=== PATIENT | male | born 1960 | race Hispanic/Latino ===

== ENCOUNTER 2024-03-23 10:07 | Inpatient (IN) | payer BC ==
[2024-03-23] VITALS (18 sets, daily range): BP systolic 136–151; BP diastolic 60–79; PULSE 81–101; RESP 17–26; TEMP 97.6–99.9; O2SAT 96–98
[~2024-03-23] VITALS: Ht 180.3 cm; Wt 84.8 kg
[2024-03-23] MEDS: 0.9%NACL 1000ML 1,000 ML IV ONE (10:37)
[2024-03-23] MEDS: ondanSETRON 4MG INJ IVP ONE (10:37)
[2024-03-23] MEDS: morPHINE 2 MG SYG IVP ONE (10:39)
[2024-03-23 10:40] LABS: BASOPHILS # (AUTO) 0.13 K/uL (0.00-0.20); BASOPHILS % (AUTO) 0.5 % (0.0-5.0); HEMATOCRIT 45.2 % (42-54); LYMPHOCYTES # (AUTO) 0.6 K/uL (1.0-4.8); MEAN CORPUSCULAR HEMOGLOBIN 34.4 pg (27.0-33.0); MEAN CORPUSCULAR HGB CONC 35.4 g/dL (32.0-36.0); MEAN CORPUSCULAR VOLUME 97.2 fL (79-99); MONOCYTES # (AUTO) 1.5 K/uL (0.1-1.0); MONOCYTES % (AUTO) 5.2 % (3.0-13.0); NEUTROPHILS # (AUTO) 26.2 K/uL (1.8-7.7); NEUTROPHILS % (AUTO) 91.3 % (40.0-77.0); PLATELET COUNT (AUTO) 238 K/uL (130-400); RED BLOOD CELL COUNT(AUTO) 4.65 MIL/uL (4.50-6.20); RED CELL DISTRIBUTION WIDTH 11.9 % (11.0-15.5); WHITE BLOOD COUNT (AUTO) 28.7 K/uL (4.8-10.8)
[2024-03-23 10:48] LABS: CREATININE 0.7 mg/dL (0.5-1.3); POTASSIUM 3.2 mmol/L (3.5-5.1)
[2024-03-23] MEDS: ZOSYN 3.375GM +NS 50ML IVPB STA (11:14)
[2024-03-23] MEDS ORDERED: IOHEXOL-350 75 ML VIAL IV ONE (11:46)
[2024-03-23] MEDS: PoTASSium BIcarbonate/CIT AC 25 MEQ TABLET.EFF PO ONE (13:31)
[2024-03-23] MEDS: [UNRECOGNIZED DRUG - OTHER] IV ONE (13:36)
[2024-03-23] MEDS: morPHINE 4 MG SYG IVP ONE (13:39)
[2024-03-23] MEDS ORDERED: HEParin 5,000 UNIT VIAL SQ SCH (14:30)
[2024-03-23] MEDS ORDERED: morPHINE 2 MG SYG IVP PRN (14:30)
[2024-03-23] MEDS: hydroMORPHone 0.5 MG SYG (0.5MG/0.5ML) IVP PRN (14:36)
[2024-03-23] MEDS: DEXTROSE 5 %-0.45 % NACL 1,000 ML IV SCH (15:49)
[2024-03-23 16:29] LABS: INR 1.21 (0.85-1.15); PROTHROMBIN TIME 12.9 SEC (9.6-11.6)
[2024-03-23 16:31] LABS: PARTIAL THROMBOPLASTIN TIME 30.8 SEC (26.3-35.5)
[2024-03-23] MEDS ORDERED: 0.9%NACL 50ML IV SCH (19:00)
[2024-03-23] MEDS ORDERED: dexaMETHasone SOD PHOSPHATE 10MG/ML 1ML VIAL ONE (20:23)
[2024-03-23] MEDS ORDERED: LIDOCAINE PF 100MG/5ML (2%) SYRINGE 5ML ONE (20:23)
[2024-03-23] MEDS ORDERED: MIDAZOLAM HCL 1 MG/ML 2ML VIAL ONE (20:24)
[2024-03-23] MEDS ORDERED: GLYCOPYRROLATE 0.2 MG/ML 5 ML VIAL ONE (20:24)
[2024-03-23] MEDS ORDERED: SUCCINYLCHOLINE CHLORIDE 20 MG/ML 10 ML VIAL ONE (20:24)
[2024-03-23] MEDS ORDERED: NEOSTIGMINE METHYLSULFATE 1MG/ML IV ONE (20:24)
[2024-03-23] MEDS ORDERED: proPOFol 10 MG/ML 20ML VIAL IV ONE (20:24)
[2024-03-23] MEDS ORDERED: ondanSETRON 4MG INJ ONE (20:24)
[2024-03-23] MEDS ORDERED: rocuRONium bROMide 10MG/1ML 5ML VL ONE (20:24)
[2024-03-23] MEDS ORDERED: FENTanyl CITRate PF 50 MCG/1 ML 2ML VIAL ONE ×3 (20:25→21:42)
[2024-03-23] MEDS ORDERED: ketaMINE 50MG/ML SYRINGE 50 MG/ML DISP.SYRIN ONE (20:35)
[2024-03-23] MEDS ORDERED: ALBUMIN (HUMAN) 5% 250 ML IV ONE (20:36)
[2024-03-23] MEDS ORDERED: BUPIvacaine/PF 0.5% 30ML VIAL ONE (20:45)
[2024-03-23] MEDS: HEParin 5,000 UNIT VIAL SQ SCH (21:00)
[2024-03-23] MEDS: BUPIvacaine/PF 0.5% 30ML VIAL INJ ONE (21:10)
[2024-03-23] MEDS ORDERED: OXYmetazolone HCL SPRAY 15 ML BOTTLE ONE (21:26)
[2024-03-23] MEDS: SUGAMMADEX SODIUM 200 MG/2 ML VIAL IV ONE (21:45)
[2024-03-23] MEDS: ZOSYN 3.375GM +NS 50ML IVPB SCH (22:15)
[2024-03-23] MEDS: ZOSYN 3.375GM+NS 50ML 50 ML ONE (23:51)
[2024-03-24] VITALS (15 sets, daily range): BP systolic 126–156; BP diastolic 69–84; PULSE 69–87; RESP 18–20; TEMP 98–98.7; O2SAT 98–100
[2024-03-24] MEDS: ketOROlac 15MG/ML VIAL (15MG/ML) IV PRN (03:09)
[2024-03-24 03:44] LABS: BASOPHILS # (AUTO) 0.03 K/uL (0.00-0.20); BASOPHILS % (AUTO) 0.2 % (0.0-5.0); HEMATOCRIT 40.1 % (42-54); IMMATURE GRANULOCYTE ABSOLUTE 0.07 K/uL (0-1); LYMPHOCYTES # (AUTO) 0.5 K/uL (1.0-4.8); MEAN CORPUSCULAR HEMOGLOBIN 34.7 pg (27.0-33.0); MEAN CORPUSCULAR HGB CONC 34.4 g/dL (32.0-36.0); MEAN CORPUSCULAR VOLUME 100.8 fL (79-99); MONOCYTES # (AUTO) 0.8 K/uL (0.1-1.0); MONOCYTES % (AUTO) 4.3 % (3.0-13.0); NEUTROPHILS % (AUTO) 92.1 % (40.0-77.0); PLATELET COUNT (AUTO) 215 K/uL (130-400); RED BLOOD CELL COUNT(AUTO) 3.98 MIL/uL (4.50-6.20); WHITE BLOOD COUNT (AUTO) 17.4 K/uL (4.8-10.8)
[2024-03-24 04:08] LABS: ALBUMIN 2.3 g/dL (3.5-5.0); BILIRUBIN,TOTAL 1.2 mg/dL (0.2-1.0); CREATININE 0.9 mg/dL (0.5-1.3); POTASSIUM 3.7 mmol/L (3.5-5.1); TOTAL PROTEIN, SERUM 6.3 g/dL (6.0-8.3)
[2024-03-24] MEDS: ZOSYN 3.375GM +NS 50ML IVPB SCH (06:14)
[2024-03-24] MEDS ORDERED: LORazepam 2 MG/ML 1 ML VIAL IVP PRN (17:30)
[2024-03-24] MEDS ORDERED: PHARMACY COMMUNICATION MISC PRN (17:30)
[2024-03-24] MEDS: chlordiazePOXIDE HCL 25 MG CAP PO PRN (20:34)
[2024-03-24] MEDS: NICOTINE 21 MG/ 24 HR PATCH TD SCH (20:34)
[2024-03-25 04:09] VITALS: BP 149/80; PULSE 82; RESP 18; TEMP 98.2
[2024-03-25 08:00] VITALS: BP 149/77; PULSE 81; RESP 17; TEMP 97.7; O2SAT 97
[2024-03-25 12:00] VITALS: BP 169/91; PULSE 75; RESP 21; TEMP 98.1
[2024-03-25 16:00] VITALS: BP 167/88; PULSE 83; RESP 20; TEMP 98.2
[2024-03-25 19:25] VITALS: O2SAT 99
[2024-03-25 20:00] VITALS: BP 153/85; PULSE 81; RESP 20; TEMP 99.2
[2024-03-25] MEDS: morPHINE 4 MG SYG IVP PRN (22:29)
[2024-03-26] VITALS: BP 148/85; PULSE 88; RESP 20; TEMP 99.1
[2024-03-26 04:00] VITALS: BP 156/88; PULSE 81; RESP 20; TEMP 99.6
[2024-03-26 08:00] VITALS: BP 150/87; PULSE 74; RESP 19; TEMP 98.3; O2SAT 100
[2024-03-26 12:00] VITALS: BP 171/91; PULSE 81; RESP 18; TEMP 98.1
[2024-03-26 16:00] VITALS: BP 165/91; PULSE 85; RESP 18; TEMP 97.9
[2024-03-26 20:00] VITALS: BP 159/83; PULSE 94; RESP 20; TEMP 97.9; O2SAT 98
[2024-03-27] VITALS (8 sets, daily range): BP systolic 147–164; BP diastolic 82–95; PULSE 78–92; RESP 18–20; TEMP 97.9–99.6; O2SAT 97–98
[2024-03-27 04:02] LABS: BASOPHILS # (AUTO) 0.04 K/uL (0.00-0.20); BASOPHILS % (AUTO) 0.3 % (0.0-5.0); EOSINOPHILS # (AUTO) 0.05 K/uL (0.00-0.70); EOSINOPHILS % (AUTO) 0.4 % (0.0-8.0); HEMATOCRIT 37.9 % (42-54); IMMATURE GRANULOCYTE ABSOLUTE 0.12 K/uL (0-1); LYMPHOCYTES # (AUTO) 1.2 K/uL (1.0-4.8); LYMPHOCYTES % (AUTO) 9.8 % (21.0-51.0); MEAN CORPUSCULAR HEMOGLOBIN 34.7 pg (27.0-33.0); MEAN CORPUSCULAR HGB CONC 35.6 g/dL (32.0-36.0); MEAN CORPUSCULAR VOLUME 97.4 fL (79-99); MONOCYTES % (AUTO) 8.5 % (3.0-13.0); NEUTROPHILS # (AUTO) 9.6 K/uL (1.8-7.7); PLATELET COUNT (AUTO) 174 K/uL (130-400); RED BLOOD CELL COUNT(AUTO) 3.89 MIL/uL (4.50-6.20); RED CELL DISTRIBUTION WIDTH 11.9 % (11.0-15.5); WHITE BLOOD COUNT (AUTO) 12.1 K/uL (4.8-10.8)
[2024-03-27 04:16] LABS: ALBUMIN 1.7 g/dL (3.5-5.0); BILIRUBIN,TOTAL 1.2 mg/dL (0.2-1.0); CREATININE 0.7 mg/dL (0.5-1.3); TOTAL PROTEIN, SERUM 5.9 g/dL (6.0-8.3)
[2024-03-27 04:22] LABS: POTASSIUM 2.4 mmol/L (3.5-5.1)
[2024-03-27] MEDS ORDERED: PoTASSium chl 10% ELIXIR 20MEQ 20 MEQ/15 ML UDCUP PO PRN (04:30)
[2024-03-27] MEDS: PoTASSium chloRIDE 20MEQ ER 20 MEQ ERTAB PO PRN (04:32)
[2024-03-27] MEDS: PoTASSium chloRIDE 20MEQ ER 20 MEQ ERTAB PO ONE (04:39)
[2024-03-27] MEDS: MAGNESIUM 2GM PREMIX 50ML 50 ML IV PRN (04:39)
[2024-03-27] MEDS: ondanSETRON 4MG INJ IVP PRN (19:46)
[2024-03-28] VITALS (8 sets, daily range): BP systolic 142–168; BP diastolic 74–86; PULSE 80–86; RESP 18–20; TEMP 98.2–100.8; O2SAT 96–97
[2024-03-28] MEDS ORDERED: IOHEXOL 350 MG/ML 100ML INFUS..BTL IV ONE (11:19)
[2024-03-28] MEDS: SIMETHICONE 80 MG TAB.CHEW PO ONE (12:15)
[2024-03-28] MEDS: acetaMINOPHEN WITH coDEINE 1 TAB TAB PO PRN (12:15)
[2024-03-28 15:45] LABS: INR 1.18 (0.85-1.15); PROTHROMBIN TIME 12.6 SEC (9.6-11.6)
[2024-03-28 15:46] LABS: PARTIAL THROMBOPLASTIN TIME 28.2 SEC (26.3-35.5)
[2024-03-28] MEDS: fluCONazole 200 MG/NS 100 ML 100 ML IV SCH (15:50)
[2024-03-29] VITALS (9 sets, daily range): BP systolic 116–159; BP diastolic 68–92; PULSE 74–87; RESP 18–21; TEMP 98.3–100.4; O2SAT 97–98
[2024-03-29] MEDS ORDERED: DIATR MEGLU/DIATRIZOATE SODIUM 30 ML BOTTLE ONE (11:03)
[2024-03-29] MEDS: ketOROlac 30MG VIAL (30MG/ML) IVP PRN (17:05)
[2024-03-30 04:29] VITALS: BP 119/69; PULSE 70; RESP 17; TEMP 99.6
[2024-03-30 06:11] LABS: BASOPHILS # (AUTO) 0.07 K/uL (0.00-0.20); BASOPHILS % (AUTO) 0.4 % (0.0-5.0); EOSINOPHILS # (AUTO) 0.06 K/uL (0.00-0.70); EOSINOPHILS % (AUTO) 0.3 % (0.0-8.0); HEMATOCRIT 34.9 % (42-54); IMMATURE GRANULOCYTE ABSOLUTE 0.24 K/uL (0-1); LYMPHOCYTES # (AUTO) 1.4 K/uL (1.0-4.8); LYMPHOCYTES % (AUTO) 7.3 % (21.0-51.0); MEAN CORPUSCULAR HGB CONC 34.1 g/dL (32.0-36.0); MEAN CORPUSCULAR VOLUME 99.7 fL (79-99); MONOCYTES # (AUTO) 1.4 K/uL (0.1-1.0); MONOCYTES % (AUTO) 7.3 % (3.0-13.0); NEUTROPHILS # (AUTO) 15.8 K/uL (1.8-7.7); NEUTROPHILS % (AUTO) 83.4 % (40.0-77.0); PLATELET COUNT (AUTO) 293 K/uL (130-400); RED CELL DISTRIBUTION WIDTH 12.1 % (11.0-15.5)
[2024-03-30 06:17] LABS: ALBUMIN 1.6 g/dL (3.5-5.0); BILIRUBIN,TOTAL 0.8 mg/dL (0.2-1.0); CREATININE 0.9 mg/dL (0.5-1.3); MAGNESIUM 1.9 mg/dL (1.80-2.40); POTASSIUM 3.8 mmol/L (3.5-5.1); TOTAL PROTEIN, SERUM 6.1 g/dL (6.0-8.3)
[2024-03-30 08:11] VITALS: BP 141/71; PULSE 78; RESP 19; TEMP 99.4
[2024-03-30 08:30] VITALS: O2SAT 98
[2024-03-30 20:00] VITALS: BP 148/74; PULSE 82; RESP 20; TEMP 99.4
[2024-03-31] VITALS: BP 144/73; PULSE 78; RESP 20; TEMP 99.2
[2024-03-31 04:00] VITALS: BP 141/73; PULSE 88; RESP 20; TEMP 98.3
[2024-03-31 08:00] VITALS: BP 147/72; PULSE 80; RESP 19; TEMP 97.9; O2SAT 98
[2024-03-31 08:15] VITALS: O2SAT 99
[2024-03-31 16:00] VITALS: BP 151/82; PULSE 81; RESP 19; TEMP 99.4
[2024-03-31 20:00] VITALS: BP 142/75; PULSE 79; RESP 20; TEMP 98.8; O2SAT 96
[2024-04-01] VITALS (8 sets, daily range): BP systolic 134–165; BP diastolic 65–88; PULSE 69–87; RESP 16–20; TEMP 98.2–99.8; O2SAT 98
[2024-04-01] MEDS: DiphenhydrAMINE HCL 25 MG CAPSULE ONE (02:26)
[2024-04-01] MEDS: DiphenhydrAMINE HCL 25 MG CAPSULE PO PRN (02:27)
[2024-04-01] MEDS: ZOSYN 3.375GM +NS 50ML IVPB SCH (23:25)
[2024-04-02] MEDS: CALCIUM CARB 500MG CHEW TAB PO ONE (01:20)
[2024-04-02 03:48] VITALS: BP 132/66; PULSE 93; RESP 18; TEMP 98.3
[2024-04-02 04:54] LABS: BASOPHILS # (AUTO) 0.09 K/uL (0.00-0.20); BASOPHILS % (AUTO) 0.5 % (0.0-5.0); EOSINOPHILS # (AUTO) 0.01 K/uL (0.00-0.70); EOSINOPHILS % (AUTO) 0.1 % (0.0-8.0); HEMATOCRIT 36.3 % (42-54); IMMATURE GRANULOCYTE ABSOLUTE 0.18 K/uL (0-1); LYMPHOCYTES # (AUTO) 1.1 K/uL (1.0-4.8); LYMPHOCYTES % (AUTO) 6.7 % (21.0-51.0); MEAN CORPUSCULAR HEMOGLOBIN 34.2 pg (27.0-33.0); MEAN CORPUSCULAR HGB CONC 33.9 g/dL (32.0-36.0); MEAN CORPUSCULAR VOLUME 100.8 fL (79-99); MONOCYTES # (AUTO) 1.5 K/uL (0.1-1.0); NEUTROPHILS # (AUTO) 13.9 K/uL (1.8-7.7); NEUTROPHILS % (AUTO) 82.6 % (40.0-77.0); PLATELET COUNT (AUTO) 379 K/uL (130-400); RED CELL DISTRIBUTION WIDTH 12.2 % (11.0-15.5); WHITE BLOOD COUNT (AUTO) 16.8 K/uL (4.8-10.8)
[2024-04-02 05:11] LABS: ALBUMIN 1.8 g/dL (3.5-5.0); BILIRUBIN,TOTAL 0.8 mg/dL (0.2-1.0); CREATININE 0.8 mg/dL (0.5-1.3); POTASSIUM 3.6 mmol/L (3.5-5.1); TOTAL PROTEIN, SERUM 6.5 g/dL (6.0-8.3)
[2024-04-02 08:08] VITALS: BP 124/67; PULSE 79; RESP 16; TEMP 99.4
[2024-04-02] MEDS: PANTOPrazole 40 MG/VIAL IVP SCH (08:24)
[2024-04-02 08:47] VITALS: O2SAT 98
[2024-04-02] MEDS ORDERED: FAMOTIDINE 20MG VIAL IV PRN (11:00)
[2024-04-02 12:54] VITALS: BP 121/66; PULSE 93; RESP 16; TEMP 98.4
[2024-04-02 16:47] VITALS: BP 122/64; PULSE 86; RESP 16; TEMP 98.1
[2024-04-02 20:00] VITALS: BP 155/79; PULSE 89; RESP 18; TEMP 99.1; O2SAT 98
[2024-04-03] VITALS (7 sets, daily range): BP systolic 124–161; BP diastolic 66–95; PULSE 74–95; RESP 16–18; TEMP 98.2–100; O2SAT 97
[2024-04-03 03:51] LABS: HEMATOCRIT 31.3 % (42-54); MEAN CORPUSCULAR HEMOGLOBIN 34.2 pg (27.0-33.0); MEAN CORPUSCULAR HGB CONC 33.9 g/dL (32.0-36.0); RED BLOOD CELL COUNT(AUTO) 3.1 MIL/uL (4.50-6.20); RED CELL DISTRIBUTION WIDTH 12.4 % (11.0-15.5); WHITE BLOOD COUNT (AUTO) 17.8 K/uL (4.8-10.8)
[2024-04-03 04:04] LABS: ALBUMIN 1.6 g/dL (3.5-5.0); BILIRUBIN,TOTAL 0.5 mg/dL (0.2-1.0); CREATININE 0.8 mg/dL (0.5-1.3); POTASSIUM 3.8 mmol/L (3.5-5.1)
[2024-04-03] MEDS: ketOROlac 30MG VIAL (30MG/ML) IVP PRN (22:23)
[2024-04-04] VITALS (8 sets, daily range): BP systolic 121–148; BP diastolic 65–92; PULSE 68–90; RESP 14–18; TEMP 98.2–99.2; O2SAT 97–98
[2024-04-04 04:05] LABS: HEMATOCRIT 31.3 % (42-54); MEAN CORPUSCULAR HEMOGLOBIN 33.8 pg (27.0-33.0); MEAN CORPUSCULAR HGB CONC 33.5 g/dL (32.0-36.0); MEAN CORPUSCULAR VOLUME 100.6 fL (79-99); RED BLOOD CELL COUNT(AUTO) 3.11 MIL/uL (4.50-6.20); RED CELL DISTRIBUTION WIDTH 12.3 % (11.0-15.5); WHITE BLOOD COUNT (AUTO) 12.9 K/uL (4.8-10.8)
[2024-04-04 04:29] LABS: ALBUMIN 1.5 g/dL (3.5-5.0); BILIRUBIN,TOTAL 0.4 mg/dL (0.2-1.0); CREATININE 0.8 mg/dL (0.5-1.3); POTASSIUM 3.8 mmol/L (3.5-5.1); TOTAL PROTEIN, SERUM 6.1 g/dL (6.0-8.3)
[2024-04-04] MEDS ORDERED: IOHEXOL 350 MG/ML 100ML INFUS..BTL IV ONE (09:08)
[2024-04-04] MEDS ORDERED: DIATR MEGLU/DIATRIZOATE SODIUM 30 ML BOTTLE ONE (09:09)
[2024-04-04 16:19] LABS: INR 1.11 (0.85-1.15); PROTHROMBIN TIME 11.9 SEC (9.6-11.6)
[2024-04-04 16:20] LABS: PARTIAL THROMBOPLASTIN TIME 29.9 SEC (26.3-35.5)
[2024-04-04] MEDS: morPHINE 4 MG SYG IVP PRN (18:25)
[2024-04-05] VITALS (14 sets, daily range): BP systolic 132–158; BP diastolic 71–80; PULSE 71–83; RESP 16–20; TEMP 97.6–99.4; O2SAT 97–98
[2024-04-05] MEDS: 0.9%NACL 10ML VIAL IV SCH (08:46)
[2024-04-05] MEDS ORDERED: FENTanyl CITRate PF 50 MCG/1 ML 2ML VIAL ONE (13:44)
[2024-04-05] MEDS ORDERED: MIDAZOLAM HCL 1 MG/ML 2ML VIAL ONE (13:44)
[2024-04-05] MEDS: [UNRECOGNIZED DRUG - NUTRITION] IV SCH (18:17)
[2024-04-05] MEDS: PHARMACY COMMUNICATION MISC SCH (20:00)
[2024-04-06] VITALS (9 sets, daily range): BP systolic 128–168; BP diastolic 69–83; PULSE 64–89; RESP 17–20; TEMP 98.2–98.9; O2SAT 98–99
[2024-04-06 05:32] LABS: HEMATOCRIT 32.8 % (42-54); MEAN CORPUSCULAR HGB CONC 33.5 g/dL (32.0-36.0); MEAN CORPUSCULAR VOLUME 101.2 fL (79-99); RED BLOOD CELL COUNT(AUTO) 3.24 MIL/uL (4.50-6.20); RED CELL DISTRIBUTION WIDTH 12.1 % (11.0-15.5); WHITE BLOOD COUNT (AUTO) 12.1 K/uL (4.8-10.8)
[2024-04-06 05:48] LABS: ALBUMIN 1.7 g/dL (3.5-5.0); BILIRUBIN,TOTAL 0.4 mg/dL (0.2-1.0); CREATININE 0.6 mg/dL (0.5-1.3); MAGNESIUM 1.9 mg/dL (1.80-2.40); POTASSIUM 3.5 mmol/L (3.5-5.1); TOTAL PROTEIN, SERUM 6.6 g/dL (6.0-8.3)
[2024-04-06] MEDS: FAT EMULSIONS 20% 250ML 250 ML IV SCH (09:09)
[2024-04-06] MEDS: [UNRECOGNIZED DRUG - NUTRITION] IV SCH (22:21)
[2024-04-07] VITALS (55 sets, daily range): BP systolic 84–186; BP diastolic 44–88; PULSE 71–127; RESP 15–23; TEMP 97.5–98.9; O2SAT 96–100
[2024-04-07] MEDS: hydroMORPHone 0.5 MG SYG (0.5MG/0.5ML) IVP PRN (03:03)
[2024-04-07 06:00] LABS: HEMATOCRIT 32.7 % (42-54); MEAN CORPUSCULAR HEMOGLOBIN 34.1 pg (27.0-33.0); MEAN CORPUSCULAR HGB CONC 33.6 g/dL (32.0-36.0); MEAN CORPUSCULAR VOLUME 101.2 fL (79-99); RED BLOOD CELL COUNT(AUTO) 3.23 MIL/uL (4.50-6.20); RED CELL DISTRIBUTION WIDTH 12.1 % (11.0-15.5); WHITE BLOOD COUNT (AUTO) 9.8 K/uL (4.8-10.8)
[2024-04-07 06:15] LABS: ALBUMIN 1.8 g/dL (3.5-5.0); BILIRUBIN,TOTAL 0.4 mg/dL (0.2-1.0); CREATININE 0.7 mg/dL (0.5-1.3); POTASSIUM 3.5 mmol/L (3.5-5.1); TOTAL PROTEIN, SERUM 7.1 g/dL (6.0-8.3)
[2024-04-07] MEDS ORDERED: LIDOCAINE PF 100MG/5ML (2%) SYRINGE 5ML ONE (12:35)
[2024-04-07] MEDS ORDERED: MIDAZOLAM HCL 1 MG/ML 2ML VIAL ONE (12:35)
[2024-04-07] MEDS ORDERED: dexaMETHasone SOD PHOSPHATE 10MG/ML 1ML VIAL ONE (12:35)
[2024-04-07] MEDS ORDERED: GLYCOPYRROLATE 0.2 MG/ML 5 ML VIAL ONE (12:36)
[2024-04-07] MEDS ORDERED: rocuRONium bROMide 10MG/1ML 5ML VL ONE (12:36)
[2024-04-07] MEDS ORDERED: proPOFol 10 MG/ML 20ML VIAL IV ONE (12:36)
[2024-04-07] MEDS ORDERED: NEOSTIGMINE METHYLSULFATE 1MG/ML IV ONE (12:36)
[2024-04-07] MEDS ORDERED: SUCCINYLCHOLINE CHLORIDE 20 MG/ML 10 ML VIAL ONE (12:36)
[2024-04-07] MEDS ORDERED: FENTanyl CITRate PF 50 MCG/1 ML 2ML VIAL ONE ×4 (12:37→14:51)
[2024-04-07] MEDS ORDERED: phenylEPHRINE HCL 10 MG/ML 1ML VIAL IV ONE (12:37)
[2024-04-07] MEDS ORDERED: ALBUMIN (HUMAN) 5% 500 ML IV ONE (12:51)
[2024-04-07] MEDS ORDERED: ketaMINE 50MG/ML SYRINGE 50 MG/ML DISP.SYRIN ONE (12:52)
[2024-04-07 13:47] LABS: ABG BASE EXCESS -4.6 mmol/L (-2.0-3.0); ABG HCO3 21.5 mmol/L (21.0-28.0); ABG OXYGEN SATURATION 99.9 % (94.0-98.0); ABG PCO2 44 mmHg (35-48); ABG PH 7.309 (7.350-7.450); CARBON MONOXIDE 0.3 % (0.5-1.5); DEVICE COMMENT ALINE; HHb 0.1; PO2, ARTERIAL BG 488.9 mmHg (83.0-108.0); VENT MODE, BG OR VENT (ROOM AIR)
[2024-04-07] MEDS ORDERED: SODIUM BICARB 8.4% 50ML SYRINGE ONE (13:53)
[2024-04-07] MEDS ORDERED: MEPERIDINE-PF 25 MG/ML SYG ONE (14:45)
[2024-04-07 16:14] LABS: ABG HCO3 21.2 mmol/L (21.0-28.0); ABG OXYGEN SATURATION 99.1 % (94.0-98.0); ABG PCO2 44 mmHg (35-48); ABG PH 7.302 (7.350-7.450); CARBON MONOXIDE 1.4 % (0.5-1.5); HHb 0.9; PO2, ARTERIAL BG 172.3 mmHg (83.0-108.0); VENT MODE, BG SIMV-VC PS10 (ROOM AIR)
[2024-04-07] MEDS: FENTanyl 2500MCG+NS 250ML 250 ML IV ONE (16:22)
[2024-04-07] MEDS ORDERED: NOREPINEPHRINE BITARTRATE 32 MG in 0.9% NACL 250ML 250 ML IV SCH (18:00)
[2024-04-07] MEDS: 0.9%NACL 1000ML 1,000 ML IV SCH (18:07)
[2024-04-07] MEDS: NOREPINEPHRINE 16MG/NS 250ML 250 ML IV ONE (18:37)
[2024-04-07] MEDS: PoTASSium chloRIDE 10MEQ/100ML 100 ML IV PRN (19:40)
[2024-04-07] MEDS: MIDAZOLAM 100MG-0.9% NS 100ML 50 ML IV PRN (22:52)
[2024-04-08] VITALS (75 sets, daily range): BP systolic 90–151; BP diastolic 43–77; PULSE 65–92; RESP 9–26; TEMP 98.2–99.2; O2SAT 98–100
[2024-04-08 03:29] LABS: ABG BASE EXCESS -1.1 mmol/L (-2.0-3.0); ABG HCO3 22.7 mmol/L (21.0-28.0); ABG OXYGEN SATURATION 98.9 % (94.0-98.0); ABG PCO2 35 mmHg (35-48); ABG PH 7.435 (7.350-7.450); CARBON MONOXIDE 0.7 % (0.5-1.5); DEVICE COMMENT AC RN POLLY; HHb 1.1; PO2, ARTERIAL BG 150.7 mmHg (83.0-108.0); VENT MODE, BG RR (ROOM AIR)
[2024-04-08 05:35] LABS: BASOPHILS # (AUTO) 0.09 K/uL (0.00-0.20); BASOPHILS % (AUTO) 0.4 % (0.0-5.0); EOSINOPHILS # (AUTO) 0.02 K/uL (0.00-0.70); EOSINOPHILS % (AUTO) 0.1 % (0.0-8.0); HEMATOCRIT 26.4 % (42-54); IMMATURE GRANULOCYTE ABSOLUTE 0.24 K/uL (0-1); LYMPHOCYTES # (AUTO) 1.2 K/uL (1.0-4.8); LYMPHOCYTES % (AUTO) 5.8 % (21.0-51.0); MEAN CORPUSCULAR HEMOGLOBIN 34.5 pg (27.0-33.0); MEAN CORPUSCULAR HGB CONC 33.7 g/dL (32.0-36.0); MEAN CORPUSCULAR VOLUME 102.3 fL (79-99); MONOCYTES # (AUTO) 1.2 K/uL (0.1-1.0); MONOCYTES % (AUTO) 5.9 % (3.0-13.0); NEUTROPHILS # (AUTO) 18.3 K/uL (1.8-7.7); NEUTROPHILS % (AUTO) 86.7 % (40.0-77.0); PLATELET COUNT (AUTO) 360 K/uL (130-400); RED BLOOD CELL COUNT(AUTO) 2.58 MIL/uL (4.50-6.20); RED CELL DISTRIBUTION WIDTH 12.4 % (11.0-15.5); WHITE BLOOD COUNT (AUTO) 21.1 K/uL (4.8-10.8)
[2024-04-08 05:57] LABS: ALBUMIN 1.7 g/dL (3.5-5.0); BILIRUBIN,TOTAL 0.5 mg/dL (0.2-1.0); CREATININE 0.6 mg/dL (0.5-1.3); MAGNESIUM 1.7 mg/dL (1.80-2.40); POTASSIUM 3.8 mmol/L (3.5-5.1); THYROID STIMULATING HORMONE 2.16 uIU/mL (0.36-3.74); TOTAL PROTEIN, SERUM 5.5 g/dL (6.0-8.3)
[2024-04-08] MEDS: FENTanyl 2500MCG+NS 250ML 250 ML IV SCH (08:30)
[2024-04-08] MEDS ORDERED: MAGNESIUM 2GM PREMIX 50ML 50 ML IV PRN (13:00)
[2024-04-08] MEDS: fluCONazole 200 MG/NS 100 ML IV SCH (16:45)
[2024-04-08] MEDS ORDERED: dexmedeTOMIDine 400MCG/NS100ML IV SCH (17:00)
[2024-04-09] VITALS (59 sets, daily range): BP systolic 128–261; BP diastolic 38–240; PULSE 82–119; RESP 16–28; TEMP 98–99.5; O2SAT 95–99
[2024-04-09 03:53] LABS: ABG BASE EXCESS -0.1 mmol/L (-2.0-3.0); ABG HCO3 23.3 mmol/L (21.0-28.0); ABG OXYGEN SATURATION 97.6 % (94.0-98.0); ABG PCO2 33 mmHg (35-48); ABG PH 7.473 (7.350-7.450); CARBON MONOXIDE 0.7 % (0.5-1.5); DEVICE COMMENT ALINE; HHb 2.4; PO2, ARTERIAL BG 97.1 mmHg (83.0-108.0); VENT MODE, BG CANNULA (ROOM AIR)
[2024-04-09 06:55] LABS: BASOPHILS # (AUTO) 0.03 K/uL (0.00-0.20); BASOPHILS % (AUTO) 0.2 % (0.0-5.0); EOSINOPHILS # (AUTO) 0.01 K/uL (0.00-0.70); EOSINOPHILS % (AUTO) 0.1 % (0.0-8.0); IMMATURE GRANULOCYTE ABSOLUTE 0.26 K/uL (0-1); LYMPHOCYTES # (AUTO) 1.8 K/uL (1.0-4.8); LYMPHOCYTES % (AUTO) 9.4 % (21.0-51.0); MEAN CORPUSCULAR HEMOGLOBIN 33.8 pg (27.0-33.0); MEAN CORPUSCULAR HGB CONC 32.5 g/dL (32.0-36.0); MEAN CORPUSCULAR VOLUME 103.9 fL (79-99); MONOCYTES # (AUTO) 0.9 K/uL (0.1-1.0); MONOCYTES % (AUTO) 4.5 % (3.0-13.0); NEUTROPHILS # (AUTO) 16.4 K/uL (1.8-7.7); NEUTROPHILS % (AUTO) 84.5 % (40.0-77.0); PLATELET COUNT (AUTO) 294 K/uL (130-400); RED BLOOD CELL COUNT(AUTO) 2.31 MIL/uL (4.50-6.20); RED CELL DISTRIBUTION WIDTH 12.6 % (11.0-15.5); WHITE BLOOD COUNT (AUTO) 19.4 K/uL (4.8-10.8)
[2024-04-09 07:15] LABS: ALBUMIN 1.6 g/dL (3.5-5.0); BILIRUBIN,TOTAL 0.5 mg/dL (0.2-1.0); CREATININE 0.6 mg/dL (0.5-1.3); POTASSIUM 3.5 mmol/L (3.5-5.1); TOTAL PROTEIN, SERUM 5.8 g/dL (6.0-8.3)
[2024-04-09] MEDS: M.V.I. IV [ADULT] 10 ML, MULTITRACE-4 ADULT 10ML VIAL 3 ML in CLINIMIX-E4.25%AA/D5+LYT2... IV ONE (12:01)
[2024-04-10] VITALS (8 sets, daily range): BP systolic 146–158; BP diastolic 74–88; PULSE 86–109; RESP 17–20; TEMP 98.4–100.2; O2SAT 96–97
[2024-04-10 05:14] LABS: BASOPHILS # (AUTO) 0.03 K/uL (0.00-0.20); BASOPHILS % (AUTO) 0.1 % (0.0-5.0); EOSINOPHILS # (AUTO) 0.06 K/uL (0.00-0.70); EOSINOPHILS % (AUTO) 0.3 % (0.0-8.0); HEMATOCRIT 24.4 % (42-54); IMMATURE GRANULOCYTE ABSOLUTE 0.31 K/uL (0-1); LYMPHOCYTES # (AUTO) 1.3 K/uL (1.0-4.8); LYMPHOCYTES % (AUTO) 6.3 % (21.0-51.0); MEAN CORPUSCULAR HEMOGLOBIN 34.3 pg (27.0-33.0); MEAN CORPUSCULAR HGB CONC 33.2 g/dL (32.0-36.0); MEAN CORPUSCULAR VOLUME 103.4 fL (79-99); MONOCYTES # (AUTO) 0.8 K/uL (0.1-1.0); MONOCYTES % (AUTO) 3.9 % (3.0-13.0); NEUTROPHILS # (AUTO) 18.7 K/uL (1.8-7.7); NEUTROPHILS % (AUTO) 87.9 % (40.0-77.0); PLATELET COUNT (AUTO) 280 K/uL (130-400); RED BLOOD CELL COUNT(AUTO) 2.36 MIL/uL (4.50-6.20); RED CELL DISTRIBUTION WIDTH 12.1 % (11.0-15.5); WHITE BLOOD COUNT (AUTO) 21.2 K/uL (4.8-10.8)
[2024-04-10 05:31] LABS: ALBUMIN 1.6 g/dL (3.5-5.0); BILIRUBIN,TOTAL 0.8 mg/dL (0.2-1.0); CREATININE 0.5 mg/dL (0.5-1.3); POTASSIUM 3.1 mmol/L (3.5-5.1)
[2024-04-10] MEDS ORDERED: VANCOMYCIN PROTOCOL PER PHARMACY IV SCH (10:30)
[2024-04-10] MEDS: 0.9%NACL 1000ML 1,000 ML IV SCH (11:12)
[2024-04-10] MEDS ORDERED: COMPOUND IV MISC 1 EACH IVSOLN MISC PRN (11:30)
[2024-04-10] MEDS: MEROPENEM 1 GM in 0.9%NACL 100ML 100 ML IVPB SCH ×2 (12:03→20:29)
[2024-04-10] MEDS: BisaCODYL 10 MG SUPP.RECT RC ONE (13:50)
[2024-04-10] MEDS: VANCOMYCIN 2GM/500 ML BAG 500 ML IV ONE (13:50)
[2024-04-10] MEDS: M.V.I. IV [ADULT] 10 ML, MULTITRACE-4 ADULT 10ML VIAL 3 ML in CLINIMIX-E4.25%AA/D5+LYT2... IV ONE (13:50)
[2024-04-11] VITALS (7 sets, daily range): BP systolic 145–156; BP diastolic 75–81; PULSE 69–86; RESP 18; TEMP 98.1–99.1; O2SAT 97–98
[2024-04-11] MEDS: VANCOMYCIN 1.25 GM/250 ML BAG 250 ML IV SCH (01:39)
[2024-04-11 05:45] LABS: BASOPHILS # (AUTO) 0.04 K/uL (0.00-0.20); BASOPHILS % (AUTO) 0.2 % (0.0-5.0); EOSINOPHILS # (AUTO) 0.13 K/uL (0.00-0.70); EOSINOPHILS % (AUTO) 0.6 % (0.0-8.0); HEMATOCRIT 24.8 % (42-54); IMMATURE GRANULOCYTE ABSOLUTE 0.33 K/uL (0-1); LYMPHOCYTES # (AUTO) 1.4 K/uL (1.0-4.8); LYMPHOCYTES % (AUTO) 6.8 % (21.0-51.0); MEAN CORPUSCULAR HEMOGLOBIN 34.4 pg (27.0-33.0); MEAN CORPUSCULAR HGB CONC 33.9 g/dL (32.0-36.0); MEAN CORPUSCULAR VOLUME 101.6 fL (79-99); MONOCYTES # (AUTO) 1.2 K/uL (0.1-1.0); MONOCYTES % (AUTO) 5.7 % (3.0-13.0); NEUTROPHILS # (AUTO) 17.2 K/uL (1.8-7.7); NEUTROPHILS % (AUTO) 85.1 % (40.0-77.0); PLATELET COUNT (AUTO) 293 K/uL (130-400); RED BLOOD CELL COUNT(AUTO) 2.44 MIL/uL (4.50-6.20); WHITE BLOOD COUNT (AUTO) 20.2 K/uL (4.8-10.8)
[2024-04-11 05:55] LABS: CREATININE 0.6 mg/dL (0.5-1.3); MAGNESIUM 1.7 mg/dL (1.80-2.40); PHOSPHORUS 2.9 mg/dL (2.5-4.9); POTASSIUM 3.3 mmol/L (3.5-5.1)
[2024-04-11] MEDS ORDERED: [UNRECOGNIZED DRUG - NUTRITION] IV NR ×2 (18:30→20:00)
[2024-04-11] MEDS ORDERED: [UNRECOGNIZED DRUG - NUTRITION] IV NR (19:00)
[2024-04-11] MEDS: MULTITRACE-4 ADULT 10ML VIAL 3 ML, M.V.I. IV [ADULT] 10 ML in CLINIMIX-E4.25%AA/D5+LYT2... IV NR (21:58)
[2024-04-12] VITALS: BP 138/71; PULSE 79; RESP 18; TEMP 98.8
[2024-04-12 04:00] VITALS: BP 141/75; PULSE 76; RESP 18; TEMP 98.7
[2024-04-12 08:00] VITALS: BP 142/72; PULSE 92; RESP 16; TEMP 98.9; O2SAT 98
[2024-04-12] MEDS ORDERED: FAT EMULSIONS 20% 250ML 250 ML IV SCH (10:00)
[2024-04-12 12:13] VITALS: BP 132/76; PULSE 105; RESP 18; TEMP 98.1
[2024-04-12 12:52] LABS: BASOPHILS # (AUTO) 0.08 K/uL (0.00-0.20); BASOPHILS % (AUTO) 0.4 % (0.0-5.0); EOSINOPHILS # (AUTO) 0.23 K/uL (0.00-0.70); HEMATOCRIT 24.7 % (42-54); LYMPHOCYTES # (AUTO) 1.1 K/uL (1.0-4.8); LYMPHOCYTES % (AUTO) 5.1 % (21.0-51.0); MEAN CORPUSCULAR HEMOGLOBIN 34.7 pg (27.0-33.0); MEAN CORPUSCULAR HGB CONC 33.6 g/dL (32.0-36.0); MEAN CORPUSCULAR VOLUME 103.3 fL (79-99); MONOCYTES # (AUTO) 1.4 K/uL (0.1-1.0); MONOCYTES % (AUTO) 6.1 % (3.0-13.0); NEUTROPHILS # (AUTO) 18.9 K/uL (1.8-7.7); NEUTROPHILS % (AUTO) 84.3 % (40.0-77.0); PLATELET COUNT (AUTO) 376 K/uL (130-400); RED BLOOD CELL COUNT(AUTO) 2.39 MIL/uL (4.50-6.20); RED CELL DISTRIBUTION WIDTH 12.5 % (11.0-15.5); WHITE BLOOD COUNT (AUTO) 22.4 K/uL (4.8-10.8)
[2024-04-12 13:02] LABS: CREATININE 0.6 mg/dL (0.5-1.3); MAGNESIUM 2.1 mg/dL (1.80-2.40); POTASSIUM 4.7 mmol/L (3.5-5.1)
[2024-04-12] MEDS: VANCOMYCIN 1.5 GM/250 ML BAG 250 ML IV SCH (14:58)
[2024-04-12 16:23] VITALS: BP 116/70; PULSE 108; RESP 18; TEMP 98.3
[2024-04-12 20:00] VITALS: BP 147/77; PULSE 102; RESP 18; TEMP 99.3; O2SAT 98
[2024-04-12] MEDS: GABApentin 100 MG CAPSULE PO SCH (20:08)
[2024-04-13] VITALS (7 sets, daily range): BP systolic 123–147; BP diastolic 67–76; PULSE 84–97; RESP 16–19; TEMP 98.2–99.9; O2SAT 99
[2024-04-13] MEDS: methoCARBamol 500 MG TABLET PO PRN (02:35)
[2024-04-13 05:25] LABS: HEMATOCRIT 23.4 % (42-54); MEAN CORPUSCULAR HEMOGLOBIN 33.9 pg (27.0-33.0); MEAN CORPUSCULAR HGB CONC 33.8 g/dL (32.0-36.0); MEAN CORPUSCULAR VOLUME 100.4 fL (79-99); NUCLEATED RED BLOOD CELLS 0.1 % (0.0-0.19); RED BLOOD CELL COUNT(AUTO) 2.33 MIL/uL (4.50-6.20); RED CELL DISTRIBUTION WIDTH 12.7 % (11.0-15.5)
[2024-04-13 05:45] LABS: ALBUMIN 1.7 g/dL (3.5-5.0); BILIRUBIN,TOTAL 0.5 mg/dL (0.2-1.0); CREATININE 0.5 mg/dL (0.5-1.3); MAGNESIUM 1.7 mg/dL (1.80-2.40); POTASSIUM 3.5 mmol/L (3.5-5.1); TOTAL PROTEIN, SERUM 6.4 g/dL (6.0-8.3)
[2024-04-13] MEDS ORDERED: IOHEXOL 350 MG/ML 100ML INFUS..BTL IV ONE (10:19)
[2024-04-13] MEDS ORDERED: DIATR MEGLU/DIATRIZOATE SODIUM 30 ML BOTTLE ONE (10:38)
[2024-04-13] MEDS ORDERED: IOHEXOL-350 75 ML VIAL IV ONE (13:09)
[2024-04-14] VITALS (18 sets, daily range): BP systolic 89–124; BP diastolic 48–86; PULSE 88–106; RESP 18; TEMP 98–99; O2SAT 98–100
[2024-04-14 04:51] LABS: BASOPHILS # (AUTO) 0.07 K/uL (0.00-0.20); BASOPHILS % (AUTO) 0.3 % (0.0-5.0); EOSINOPHILS # (AUTO) 0.19 K/uL (0.00-0.70); EOSINOPHILS % (AUTO) 0.8 % (0.0-8.0); HEMATOCRIT 23.4 % (42-54); LYMPHOCYTES # (AUTO) 1.8 K/uL (1.0-4.8); LYMPHOCYTES % (AUTO) 7.6 % (21.0-51.0); MEAN CORPUSCULAR HEMOGLOBIN 33.9 pg (27.0-33.0); MEAN CORPUSCULAR HGB CONC 33.8 g/dL (32.0-36.0); MEAN CORPUSCULAR VOLUME 100.4 fL (79-99); MONOCYTES # (AUTO) 1.7 K/uL (0.1-1.0); MONOCYTES % (AUTO) 7.1 % (3.0-13.0); NEUTROPHILS # (AUTO) 19.6 K/uL (1.8-7.7); NEUTROPHILS % (AUTO) 80.9 % (40.0-77.0); PLATELET COUNT (AUTO) 362 K/uL (130-400); RED BLOOD CELL COUNT(AUTO) 2.33 MIL/uL (4.50-6.20); RED CELL DISTRIBUTION WIDTH 13.2 % (11.0-15.5); WHITE BLOOD COUNT (AUTO) 24.2 K/uL (4.8-10.8)
[2024-04-14 05:02] LABS: CREATININE 0.6 mg/dL (0.5-1.3); MAGNESIUM 1.8 mg/dL (1.80-2.40)
[2024-04-14 05:05] LABS: INR 1.1 (0.85-1.15); PROTHROMBIN TIME 11.8 SEC (9.6-11.6)
[2024-04-14 05:06] LABS: PARTIAL THROMBOPLASTIN TIME 26.3 SEC (26.3-35.5)
[2024-04-14] MEDS ORDERED: FENTanyl CITRate PF 50 MCG/1 ML 2ML VIAL ONE (10:08)
[2024-04-15] VITALS (7 sets, daily range): BP systolic 115–137; BP diastolic 64–87; PULSE 85–95; RESP 16–18; TEMP 98.1–98.6; O2SAT 99
[2024-04-15 06:31] LABS: BASOPHILS # (AUTO) 0.09 K/uL (0.00-0.20); BASOPHILS % (AUTO) 0.5 % (0.0-5.0); EOSINOPHILS # (AUTO) 0.12 K/uL (0.00-0.70); EOSINOPHILS % (AUTO) 0.7 % (0.0-8.0); HEMATOCRIT 25.6 % (42-54); IMMATURE GRANULOCYTE ABSOLUTE 0.69 K/uL (0-1); LYMPHOCYTES # (AUTO) 1.8 K/uL (1.0-4.8); LYMPHOCYTES % (AUTO) 10.4 % (21.0-51.0); MEAN CORPUSCULAR HEMOGLOBIN 34.1 pg (27.0-33.0); MEAN CORPUSCULAR HGB CONC 32.8 g/dL (32.0-36.0); MEAN CORPUSCULAR VOLUME 104.1 fL (79-99); MONOCYTES # (AUTO) 1.5 K/uL (0.1-1.0); MONOCYTES % (AUTO) 8.6 % (3.0-13.0); NEUTROPHILS # (AUTO) 13.3 K/uL (1.8-7.7); NEUTROPHILS % (AUTO) 75.9 % (40.0-77.0); PLATELET COUNT (AUTO) 494 K/uL (130-400); RED BLOOD CELL COUNT(AUTO) 2.46 MIL/uL (4.50-6.20); RED CELL DISTRIBUTION WIDTH 13.2 % (11.0-15.5); WHITE BLOOD COUNT (AUTO) 17.5 K/uL (4.8-10.8)
[2024-04-15 07:49] LABS: CREATININE 0.7 mg/dL (0.5-1.3); MAGNESIUM 1.8 mg/dL (1.80-2.40); POTASSIUM 3.8 mmol/L (3.5-5.1)
[2024-04-16] VITALS (8 sets, daily range): BP systolic 108–135; BP diastolic 63–86; PULSE 78–95; RESP 16–20; TEMP 98.1–98.7; O2SAT 98
[2024-04-16 05:14] LABS: BASOPHILS # (AUTO) 0.07 K/uL (0.00-0.20); BASOPHILS % (AUTO) 0.5 % (0.0-5.0); EOSINOPHILS # (AUTO) 0.19 K/uL (0.00-0.70); EOSINOPHILS % (AUTO) 1.4 % (0.0-8.0); HEMATOCRIT 26.5 % (42-54); IMMATURE GRANULOCYTE ABSOLUTE 0.53 K/uL (0-1); LYMPHOCYTES # (AUTO) 1.7 K/uL (1.0-4.8); LYMPHOCYTES % (AUTO) 12.4 % (21.0-51.0); MEAN CORPUSCULAR HEMOGLOBIN 33.9 pg (27.0-33.0); MEAN CORPUSCULAR HGB CONC 32.8 g/dL (32.0-36.0); MEAN CORPUSCULAR VOLUME 103.1 fL (79-99); MONOCYTES # (AUTO) 1.2 K/uL (0.1-1.0); MONOCYTES % (AUTO) 8.8 % (3.0-13.0); NEUTROPHILS # (AUTO) 9.7 K/uL (1.8-7.7); NEUTROPHILS % (AUTO) 72.9 % (40.0-77.0); PLATELET COUNT (AUTO) 524 K/uL (130-400); RED BLOOD CELL COUNT(AUTO) 2.57 MIL/uL (4.50-6.20); RED CELL DISTRIBUTION WIDTH 13.1 % (11.0-15.5); WHITE BLOOD COUNT (AUTO) 13.3 K/uL (4.8-10.8)
[2024-04-16 05:31] LABS: CREATININE 0.7 mg/dL (0.5-1.3); MAGNESIUM 1.8 mg/dL (1.80-2.40)
[2024-04-17] VITALS (7 sets, daily range): BP systolic 105–122; BP diastolic 59–74; PULSE 67–99; RESP 16–18; TEMP 97.7–98.6; O2SAT 98
[2024-04-17 04:39] LABS: HEMATOCRIT 26.2 % (42-54); MEAN CORPUSCULAR HEMOGLOBIN 33.2 pg (27.0-33.0); MEAN CORPUSCULAR HGB CONC 32.8 g/dL (32.0-36.0); MEAN CORPUSCULAR VOLUME 101.2 fL (79-99); RED BLOOD CELL COUNT(AUTO) 2.59 MIL/uL (4.50-6.20); RED CELL DISTRIBUTION WIDTH 12.9 % (11.0-15.5); WHITE BLOOD COUNT (AUTO) 12.9 K/uL (4.8-10.8)
[2024-04-17 04:57] LABS: CREATININE 0.7 mg/dL (0.5-1.3); MAGNESIUM 1.8 mg/dL (1.80-2.40); POTASSIUM 3.9 mmol/L (3.5-5.1)
[2024-04-18] VITALS (7 sets, daily range): BP systolic 109–168; BP diastolic 68–76; PULSE 78–98; RESP 17–18; TEMP 97.9–98.7; O2SAT 98–99
== END 2024-04-18 22:35 | DRG 853 ==
LOC: EDH 10:07 → EDHIP 14:11 → UNDOADMIN 15:45 → 4AH 19:00 → 2CH 04-07 13:50 → 3CH 04-09 16:11
PROVIDERS: ADMIT Internal Medicine; ATTEND Internal Medicine
PROC: 0D1B0Z4 Bypass Ileum to Cutaneous, Open Approach (ICD-10-PCS; 2024-03-23)
PROC: 0DTF0ZZ Resection of Right Large Intestine, Open Approach (ICD-10-PCS; 2024-03-23)
PROC: 0DT80ZZ Resection of Small Intestine, Open Approach (ICD-10-PCS; 2024-03-23)
PROC: 3E1M48Z Irrigation of Peritoneal Cavity using Irrigating Substance, Percutaneous Endoscopic Approach (ICD-10-PCS; 2024-03-23)
PROC: 5A1935Z Respiratory Ventilation, Less than 24 Consecutive Hours (ICD-10-PCS; 2024-03-23)
PROC: 0BH17EZ Insertion of Endotracheal Airway into Trachea, Via Natural or Artificial Opening (ICD-10-PCS; 2024-03-23)
PROC: 05HC33Z Insertion of Infusion Device into Left Basilic Vein, Percutaneous Approach (ICD-10-PCS; 2024-03-23)
PROC: 0DTJ0ZZ Resection of Appendix, Open Approach (ICD-10-PCS; principal; 2024-03-23 20:47)
PROC: 0WJG4ZZ Inspection of Peritoneal Cavity, Percutaneous Endoscopic Approach (ICD-10-PCS; 2024-03-23 20:47)
DX: A41.9 Sepsis, unspecified organism (principal); E43 Unspecified severe protein-calorie malnutrition; J96.01 Acute respiratory failure with hypoxia; K35.33 Acute appendicitis with perforation, localized peritonitis, and gangrene, with abscess; K63.1 Perforation of intestine (nontraumatic); M72.6 Necrotizing fasciitis; E87.1 Hypo-osmolality and hyponatremia; Z16.24 Resistance to multiple antibiotics; E87.20 Acidosis, unspecified; K63.2 Fistula of intestine; R65.20 Severe sepsis without septic shock; Z53.31 Laparoscopic surgical procedure converted to open procedure; E87.6 Hypokalemia; E87.8 Other disorders of electrolyte and fluid balance, not elsewhere classified; K57.30 Diverticulosis of large intestine without perforation or abscess without bleeding; E66.01 Morbid (severe) obesity due to excess calories; K57.90 Diverticulosis of intestine, part unspecified, without perforation or abscess without bleeding; I10 Essential (primary) hypertension; R53.81 Other malaise; K21.9 Gastro-esophageal reflux disease without esophagitis
CPT/HCPCS: 10030; 36415; 36600; 71045; 74018; 74176; 74177; 74178; 75989; 76942; 77012; 80048; 80053; 80061; 80202; 82435; 82803; 82947; 82948; 83605; 83690; 83735; 84100; 84132; 84295; 84443; 84478; 85018; 85025; 85027; 85610; 85651; 85730; 86850; 86900; 86901; 87040; 87070; 87071; 87076; 87086; 87186; 87205; 88304; 88307; 94002; 94003; 94150; 96365; 96366; 96375; 96376; 99152; 99153; A4344; A5063; C1894; G0378; J0330; J1100; J1171; J1450; J1644; J1885; J2003; J2175; J2185; J2250; J2270; J2371; J2405; J2470; J2543; J2704; J2710; J3010; J3475; J3480; J3490; J7030; J7042; J7050; P9045; Q0163; Q9963; Q9967; 3370; A4216; A4222; A4223; A4452; A4600; A4649; A4930; A6446; A9900; C1729; C1769; G0500; J0665; J3370

== ENCOUNTER 2024-05-14 08:06 | Emergency (ER) | payer BC ==
[~2024-05-14] VITALS: Ht 180.3 cm; Wt 73.5 kg
--- NOTE | 2024-05-14 08:37 | ERN ---
General Chief Complaint: Post-Op Problem Stated Complaint: ILEOSTOMY LEAKING Time Seen by MD: 08:13 History of Present Illness Initial Comments 64-year-old male presents for leaking ileostomy bag. He had an appendectomy about six weeks ago, there were some complications requiring an ileostomy. The patient reports the bag began leaking last night. He has no other symptoms. He is eating, no fevers, no abdominal pain or tenderness, no other symptoms. Allergies: Coded Allergies: No Known Drug Allergies (Unverified Allergy, Unknown, 03/23/24) Home Meds No Active Prescriptions or Reported Meds Past Medical History Past Medical History: No Pertinent History Past Surgical History: Appendectomy, Other Surgical History Other: ILEOSTOMY ROS Dictation CONSTITUTIONAL: No chills, no fever, no weakness, no diaphoresis, no malaise. HEAD/FACE: No signs of trauma. EENT: No eye pain, no blurred vision, no tearing, no double vision, no ear pain, no ear discharge, no nose pain, no nasal congestion, no throat pain, no throat swelling, no mouth pain. RESPIRATORY: No cough, no orthopnea, no SOB, no stridor, no wheezing. CARDIOVASCULAR: No chest pain, no edema, no palpitations, no syncope. GASTROINTESTINAL/ABDOMINAL: No abdominal pain, no constipation, no diarrhea, no nausea, no vomiting. GENITOURINARY: No abnormal discharge, no dysuria, no frequent urination, no hematuria. No complaints of pain in the genitals. MUSCULOSKELETAL: No back pain, no gout, no joint pain, no joint swelling, no muscle pain, no muscle stiffness, no neck pain. INTEGUMENTARY: No change in color, no change in hair/nails, no dryness, no lesion, no lumps, no rash. NEUROLOGICAL/PSYCH: No anxiety, not depressed, no emotional problem, no headache, no numbness, no pre-existing deficit, no history of seizures, no tremors, no weakness. HEMATOLOGIC/LYMPHATIC: Not anemic, no history of blood clots, no apparent bleeding, no bruising, glands not swollen. All Systems Negative, Except as Noted. Physical Exam Physical Exam Dictation VITAL SIGNS: Reviewed. GENERAL APPEARANCE: Alert, oriented x3, no acute distress, HEAD AND FACE: Non-traumatic. EYES: PERRL, pink conjunctivas, eyelid no trauma, anterior chamber clear. EARS: Pinnas intact and no signs of trauma or erythema. Ear canals clear and no discharge. TMs no erythema. NOSE: No discharge, no bleeding. OROPHARYNX: Mouth normal, teeth no caries, tongue pink. Pharynx clear, no erythema. Tonsils no exudates, no abscesses noted. Mucous membrane moist. NECK: Supple, non-tender, no thyromegaly, no masses, no JVD, no bruits. BREAST: Deferred. CHEST: No tenderness, no crepitus, no paradoxical movement, no retractions. LUNGS: Clear, well-ventilated, symmetric, no rales, no wheezing, no rhonchi, no stridor, good breath sounds bilaterally. HEART: Regular rate, regular rhythm, no murmur, no gallops. VASCULAR: No peripheral edema. ABDOMEN: Soft, positive bowel sounds, nondistended, no guarding, nontender, no rebound, no masses no hepatomegaly, no splenomegaly, no Merritt's sign, no hernias. Leaking ileostomy. Right lower quadrant. RECTAL: Deferred. GENITAL: Deferred. NEUROLOGICAL: Normal speech, gross motor function intact, gross sensory function intact. MUSCULOSKELETAL: Neck nontender, full range of motion, back nontender, full range of motion. EXTREMITIES: Nontender, full range of motion. SKIN: Color pink, dry, no turgor, no rash, no lacerations, no abrasions, no contusions. LYMPHATICS: Deferred. MDM CC: Leaking ileostomy in the right lower quadrant Historian: Patient No comorbidities Limitations by social determinants: None Vital signs are stable Abdomen soft nontender nondistended Patient has no systemic signs or symptoms. There was no indication for lab work or imaging at this time. The RN cleaned and removed the ostomy bag, it was replaced with a good tight seal. No further leaking. We will DC. Patient has follow up scheduled for 48 hours from now with wound care. ED Course Vital Signs Date Time Temp Pulse Resp B/P (MAP) Pulse Ox O2 Delivery O2 Flow Rate FiO2 05/14/24 08:10 97.9 90 19 126/83 0 Room Air DX & DISP Disposition: Discharge Departure Impression: Primary Impression: Complication of ostomy Condition: Stable Scripts No Active Prescriptions or Reported Meds Additional Instructions: The ostomy bag was replaced. As we discussed, please return to the emergency department if you have any concerns. Please follow up with wound care and your general surgeon has a normally scheduled. Referrals: BRANDYN GALINDO MD (PCP) BERNIE CAGE DO May 14, 2024 08:37
[2024-05-14 08:41] VITALS: BP 132/70; PULSE 78; RESP 18; TEMP 98.2
== END 2024-05-14 08:48 | disposition home or self-care (01) ==
LOC: EDH 08:06
DX: K94.03 Colostomy malfunction (principal); Z90.49 Acquired absence of other specified parts of digestive tract
CPT/HCPCS: 99281

== ENCOUNTER 2024-05-14 12:02 | Emergency (ER) | payer BC ==
[~2024-05-14] VITALS: Ht 180.3 cm; Wt 73.5 kg
--- NOTE | 2024-05-14 12:12 | ERN ---
ED Note History of Present Illness Stated Complaint: ILEOSTOMY PROBLEM Chief Complaint: Other Problems Time Seen by MD: 12:06 Dictation: PATIENT HERE WITH COMPLAINTS OF A LEAKING ILEOSTOMY BAG ONSET TODAY. PATIENT HAS ALREADY BEEN SEEN IN THE ER ONCE FOR THE SAME COMPLAINT THE OLD BAG WAS REPLACED AND SKIN WAS PREPPED HOWEVER PATIENT STATES WHEN HE GOT HOME AND STARTED LEAKING AGAIN. Allergies: Coded Allergies: No Known Drug Allergies (Unverified Allergy, Unknown, 03/23/24) Home Meds No Active Prescriptions or Reported Meds Past Medical History Past Medical History: No Pertinent History Surgical History: Appendectomy Surgical History Other: ILEOSTOMY RN Note Reviewed/Agreed w/PFSH: Yes Review of System Dictation CONSTITUTIONAL: NEGATIVE EXCEPT FOR HPI HEAD/FACE: NEGATIVE EXCEPT FOR HPI EENT: NEGATIVE EXCEPT FOR HPI RESPIRATORY: NEGATIVE EXCEPT FOR HPI GASTROINTESTINAL/ABDOMINAL: NEGATIVE EXCEPT FOR HPI LEAKING ILEOSTOMY BAG GENITOURINARY: NEGATIVE EXCEPT FOR HPI MUSCULOSKELETAL: NEGATIVE EXCEPT FOR HPI INTEGUMENTARY: NEGATIVE EXCEPT FOR HPI NEUROLOGICAL/PSYCH: NEGATIVE EXCEPT FOR HPI HEMATOLOGIC/LYMPHATIC: NEGATIVE EXCEPT FOR HPI ALL SYSTEMS NEGATIVE, EXCEPT NOTED ABOVE. 13 POINT REVIEW OF SYSTEMS ASSESSED AND ALL NEGATIVE EXCEPT FOR ABOVE. Initial Vital Sign VS Vital Signs Date Time Temp Pulse Resp B/P (MAP) Pulse Ox O2 Delivery O2 Flow Rate FiO2 05/14/24 12:04 98.4 98 18 132/81 99 Room Air 0 Physical Exam Dictation VITAL SIGNS REVIEWED GENERAL APPEARANCE: ALERT, ORIENTED X 3, NO ACUTE DISTRESS, WELL DEVELOPED, NOURISHED. HEAD AND FACE: NON-TRAUMATIC. EYES: PERRL, PINK CONJUNCTIVAS, EYELID NO TRAUMA, ANTERIOR CHAMBER WITH ARCUS SENILIS. EARS: PINNAS INTACT AND NO SIGNS OF TRAUMA OR ERYTHEMA EAR CANALS CLEAR AND NO DISCHARGE TM NO ERYTHEMA NOSE: NO DISCHARGE, NO BLEEDING. OROPHARYNX: MOUTH NORMAL, TONGUE PINK, PHARYNX CLEAR,NO ERYTHEMA, TONSILS NO EXUDATES, NO ABSCESSES NOTED, MUCOUS MEMBRANE MOIST NECK: SUPPLE, NON-TENDER, NO THYROMEGALY, NO MASSES, NO JVD, NO BRUITS BREAST:DEFERRED CHEST:NO TENDERNESS, NO CREPITUS, NO PARADOXICAL MOVEMENT, NO RETRACTIONS LUNGS:CLEAR, WELL-VENTILATED, SYMMETRIC, NO RALES, NO WHEEZING, NO RHONCHI, NO STRIDOR, GOOD BREATH SOUNDS BILATERALLY HEART: REGULAR RATE, REGULAR RHYTHM, NO MURMUR, NO GALLOPS VASCULAR: NO PERIPHERAL EDEMA, ABDOMEN: SOFT, POSITIVE BOWEL SOUNDS, NONDISTENDED, NO GUARDING, NONTENDER, RIGHT LOWER QUADRANT ILEOSTOMY WITH A EXCORIATION MILD NOTED AROUND STOMA. RECTAL: DEFERRED GENITAL: DEFERRED NEUROLOGICAL: NORMAL SPEECH, MOTOR FUNCTION INTACT, SENSORY FUNCTION INTACT MUSCULOSKELETAL: NECK NONTENDER, FULL RANGE OF MOTION, BACK NONTENDER, FULL RANGE OF MOTION, EXTREMITIES: NONTENDER, FULL RANGE OF MOTION SKIN: COLOR PINK, DRY, NO TURGOR, NO RASH, NO LACERATIONS, NO ABRASIONS, NO CONTUSIONS. LYMPHATIC: DEFERRED Results (Laboratory/Radiology) Labs Reviewed?: Yes ED Course ED Course Orders Procedure Category Date Status Time *Nursing CPOE 05/14/24 Transmitted Communication: 12:11 Vital Signs Date Time Temp Pulse Resp B/P (MAP) Pulse Ox O2 Delivery O2 Flow Rate FiO2 05/14/24 12:04 98.4 98 18 132/81 99 Room Air 0 Medical Decision Making MDM MEDICAL DECISION-MAKING BASED ON REPLACEMENT OF EXISTING ILEOSTOMY BAG SKIN WAS PREPPED AROUND STOMA AND BAG WAS CUP TO SIZE. APPLIED AND NO FURTHER LEAKING. PATIENT STATES HE HAS AN APPOINTMENT WITH [facility], DR. BLACKWELL ON THURSDAY. Procedure Procedure Dictation: , PATIENT WAS GIVEN EXPLANATION OF PROCEDURE AND AGREED TO PROCEED ILEOSTOMY BAG WAS REMOVED AREA PROXIMAL TO THE STOMA WAS CLEANSED WITH NORMAL SALINE SKIN BARRIER WAS APPLIED TO EXCORIATION NEW OSTOMY BAG WAS APPLIED CUT TO 51 MM PATIENT TOLERATED WELL NO LEAKING NOTED AT THIS TIME DX & DISP Disposition: Discharge Departure Impression: Primary Impression: Complication of ostomy Condition: Stable Scripts No Active Prescriptions or Reported Meds Additional Instructions: FOLLOW-UP WITH PRIMARY CARE PROVIDER IN 1 TO 2 DAYS. TAKE MEDICATIONS DIRECTED HERE IN THE EMERGENCY ROOM. OKAY TO CONTINUE HOME MEDICATIONS UNLESS OTHERWISE DISCUSSED DURING YOUR VISIT IN THE EMERGENCY ROOM TODAY. RETURN TO YOUR NEAREST EMERGENCY ROOM IF SYMPTOMS WORSEN OR IF THERE IS NO IMPROVEMENT. CALL 911 IF YOU NEED IMMEDIATE ASSISTANCE. TAKE TYLENOL OR MOTRIN [id number] NEEDED AND IF NO CONTRAINDICATIONS ARE PRESENT. INCREASE ORAL HYDRATION. A WOUND CULTURE OR URINE CULTURE WAS ORDERED HERE IN THE EMERGENCY ROOM DEPARTMENT PLEASE FOLLOW-UP WITH PRIMARY CARE PROVIDER AND ADVISE THEM TO GET REPEAT PORTS FROM OUR FACILITY. IF YOU HAD ANY GREY WRAP/SPLINTS THAT WERE APPLIED HERE, PLEASE DO NOT REMOVE THEM UNTIL YOU SEE YOUR PRIMARY CARE OR SPECIALTY. KEEP YOUR APPOINTMENT WITH [facility] [employer] ON THURSDAY. Referrals: BRANDYN GALINDO MD (PCP) Time of Disposition: 12:52 I have reviewed the case, and I agree with, Diagnosis and Plan SPIKE NEWBY NP May 14, 2024 12:12
[2024-05-14 13:27] VITALS: BP 124/75; PULSE 73; RESP 17; TEMP 97.5; O2SAT 96
== END 2024-05-14 13:48 | disposition home or self-care (01) ==
LOC: EDH 12:02
DX: K94.03 Colostomy malfunction (principal); Z90.49 Acquired absence of other specified parts of digestive tract
CPT/HCPCS: 99281; 99282

== ENCOUNTER 2024-05-15 16:36 | Emergency (ER) | payer BC ==
[~2024-05-15] VITALS: Ht 180.3 cm; Wt 2.6 kg
--- NOTE | 2024-05-15 16:54 | ERN ---
ED Note History of Present Illness Stated Complaint: OTHER Chief Complaint: Other Problems Time Seen by MD: 16:40 Dictation: PATIENT IS A 64-YEAR-OLD MALE COMING IN COMPLAINTS OF A RIGHT LOWER QUADRANT LEAKING ILEOSTOMY BAG ONSET TWO DAYS PRIOR TO ARRIVAL. HE HAS BEEN IN THE EMERGENCY ROOM AT [facility] EACH DAY FOR THE LAST TWO DAYS WITH BAGS CHANGED AND SKIN PREPPED BOTH TIMES, STATES HE GOES HOME IN BY THE END OF THE NIGHT IT IS LEAKING. HE HAS AN APPOINTMENT WITH DR. BLACKWELL WOUND MANAGEMENT ON THURSDAY HOWEVER CAME IN BECAUSE OF THE BAG LEAKING. Allergies: Coded Allergies: No Known Drug Allergies (Unverified Allergy, Unknown, 03/23/24) Home Meds No Active Prescriptions or Reported Meds Past Medical History Past Medical History: No Pertinent History Surgical History: Appendectomy Surgical History Other: ILEOSTOMY RN Note Reviewed/Agreed w/PFSH: Yes Review of System Dictation CONSTITUTIONAL: NEGATIVE EXCEPT FOR HPI HEAD/FACE: NEGATIVE EXCEPT FOR HPI EENT: NEGATIVE EXCEPT FOR HPI RESPIRATORY: NEGATIVE EXCEPT FOR HPI GASTROINTESTINAL/ABDOMINAL: NEGATIVE EXCEPT FOR HPI LEAKING ILEOSTOMY BAG GENITOURINARY: NEGATIVE EXCEPT FOR HPI MUSCULOSKELETAL: NEGATIVE EXCEPT FOR HPI INTEGUMENTARY: NEGATIVE EXCEPT FOR HPI NEUROLOGICAL/PSYCH: NEGATIVE EXCEPT FOR HPI HEMATOLOGIC/LYMPHATIC: NEGATIVE EXCEPT FOR HPI ALL SYSTEMS NEGATIVE, EXCEPT NOTED ABOVE. 13 POINT REVIEW OF SYSTEMS ASSESSED AND ALL NEGATIVE EXCEPT FOR ABOVE. Initial Vital Sign VS Vital Signs Date Time Temp Pulse Resp B/P (MAP) Pulse Ox O2 Delivery O2 Flow Rate FiO2 05/15/24 16:38 98.2 85 16 114/74 97 Room Air 0 05/15/24 18:20 21 Physical Exam Dictation VITAL SIGNS REVIEWED GENERAL APPEARANCE: ALERT, ORIENTED X 3, NO ACUTE DISTRESS, WELL DEVELOPED, NOURISHED. HEAD AND FACE: NON-TRAUMATIC. EYES: PERRL, PINK CONJUNCTIVAS, EYELID NO TRAUMA, ANTERIOR CHAMBER WITH ARCUS SENILIS. EARS: PINNAS INTACT AND NO SIGNS OF TRAUMA OR ERYTHEMA EAR CANALS CLEAR AND NO DISCHARGE TM NO ERYTHEMA NOSE: NO DISCHARGE, NO BLEEDING. OROPHARYNX: MOUTH NORMAL, TONGUE PINK, PHARYNX CLEAR,NO ERYTHEMA, TONSILS NO EXUDATES, NO ABSCESSES NOTED, MUCOUS MEMBRANE MOIST NECK: SUPPLE, NON-TENDER, NO THYROMEGALY, NO MASSES, NO JVD, NO BRUITS BREAST:DEFERRED CHEST:NO TENDERNESS, NO CREPITUS, NO PARADOXICAL MOVEMENT, NO RETRACTIONS LUNGS:CLEAR, WELL-VENTILATED, SYMMETRIC, NO RALES, NO WHEEZING, NO RHONCHI, NO STRIDOR, GOOD BREATH SOUNDS BILATERALLY HEART: REGULAR RATE, REGULAR RHYTHM, NO MURMUR, NO GALLOPS VASCULAR: NO PERIPHERAL EDEMA, ABDOMEN: SOFT, POSITIVE BOWEL SOUNDS, NONDISTENDED, NO GUARDING, NONTENDER, NO REBOUND, NO MASSES NO HEPATOMEGALY, NO SPLENOMEGALY, NO KELLEY'S SIGN, NO HERNIAS. RIGHT LOWER QUADRANT ILEOSTOMY BAG IN PLACE LOOSE STOOL WITH EXCORIATION NOTED AROUND STOMA. BAG LEAKING RECTAL: DEFERRED GENITAL: DEFERRED NEUROLOGICAL: NORMAL SPEECH, MOTOR FUNCTION INTACT, SENSORY FUNCTION INTACT MUSCULOSKELETAL: NECK NONTENDER, FULL RANGE OF MOTION, BACK NONTENDER, FULL RANGE OF MOTION, EXTREMITIES: NONTENDER, FULL RANGE OF MOTION SKIN: COLOR PINK, DRY, NO TURGOR, NO RASH, NO LACERATIONS, NO ABRASIONS, NO CONTUSIONS. LYMPHATIC: DEFERRED Results (Laboratory/Radiology) Labs Reviewed?: Yes ED Course ED Course Vital Signs Date Time Temp Pulse Resp B/P (MAP) Pulse Ox O2 Delivery O2 Flow Rate FiO2 05/15/24 18:20 97.5 83 18 124/74 100 Room Air* 0 21 05/15/24 16:38 98.2 85 16 114/74 97 Room Air 0 Medical Decision Making MDM MEDICAL DISCHARGE MAKING BASED ON CHANGING OF ILEOSTOMY BAG. BAG WAS CHANGED AND NO LEAKING AT THIS TIME DISCHARGED HOME TO FOLLOW UP WITH HIS PRIMARY CARE DOCTOR Procedure Procedure Dictation: PROCEDURE EXPLAINED TO PATIENT HE AGREED TO PROCEED QUENTIN HAWKINS CHANGE OSTOMY BAG NO LEAKING AT THIS TIME AND PATIENT WISHED TO DISCHARGED HOME. DX & DISP Disposition: Discharge Departure Impression: Primary Impression: Complication of ostomy Condition: Stable Scripts No Active Prescriptions or Reported Meds Additional Instructions: FOLLOW-UP WITH PRIMARY CARE PROVIDER IN 1 TO 2 DAYS. TAKE MEDICATIONS DIRECTED HERE IN THE EMERGENCY ROOM. OKAY TO CONTINUE HOME MEDICATIONS UNLESS OTHERWISE DISCUSSED DURING YOUR VISIT IN THE EMERGENCY ROOM TODAY. RETURN TO YOUR NEAREST EMERGENCY ROOM IF SYMPTOMS WORSEN OR IF THERE IS NO IMPROVEMENT. CALL 911 IF YOU NEED IMMEDIATE ASSISTANCE. TAKE TYLENOL OR MOTRIN [id number] NEEDED AND IF NO CONTRAINDICATIONS ARE PRESENT. INCREASE OR AL HYDRATION. A WOUND CULTURE OR URINE CULTURE WAS ORDERED HERE IN THE EMERGENCY ROOM DEPARTMENT PLEASE FOLLOW-UP WITH PRIMARY CARE PROVIDER AND ADVISE THEM TO GET REPEAT PORTS FROM OUR FACILITY. IF YOU HAD ANY GREY WRAP/SPLINTS THAT WERE APPLIED HERE, PLEASE DO NOT REMOVE THEM UNTIL YOU SEE YOUR PRIMARY CARE OR SPECIALTY. FOLLOW UP WITH YOUR PRIMARY CARE DOCTOR AND [facility] Referrals: BRANDYN GALINDO MD (PCP) Time of Disposition: 19:09 I have reviewed the case, and I agree with, Diagnosis and Plan SPIKE NEWBY [employer]ER May 15, 2024 16:54
[2024-05-15 18:20] VITALS: BP 124/74; PULSE 83; RESP 18; TEMP 97.6; O2SAT 100
== END 2024-05-15 18:42 | disposition home or self-care (01) ==
LOC: EDH 16:36
DX: K94.03 Colostomy malfunction (principal); Z90.49 Acquired absence of other specified parts of digestive tract
CPT/HCPCS: 99282